=== PATIENT | female | born 1960 | race African-American/Black ===

== ENCOUNTER 2017-01-30 11:19 | Emergency (ER) | payer OTHER ==
[2017-01-30 11:25] VITALS: TEMP 98; BMI 24.3
[2017-01-30 12:25] LABS: BASOPHIL 1.6 % (0-2.0); MCH 30.2 pg (25.7-33.7); MCHC 33.6 g/dl (32.0-36.0); MEAN PLT VOLUME 9.1 fl (7.5-11.1); NEUTROPHILS 52.7 % (42.8-82.8); PLATELET COUNT 237 K/MM3 (134-434); RDW 12.2 % (11.6-15.6); WHITE BLOOD COUNT 4.5 K/mm3 (4.0-10.8)
[2017-01-30 12:40] LABS: CPK(DFH) 166 IU/L (26-140)
[2017-01-30 12:41] LABS: ALBUMIN 3.8 g/dl (3.5-5.0); ALK PHOS 72 U/L (32-92); ANION GAP 7 (8-16); BILIRUBIN,TOTAL 0.5 mg/dl (0.2-1.0); CALCIUM 9.4 mg/dl (8.4-10.2); CO2 27 mmol/L (22-28); CREATININE 0.9 mg/dl (0.6-1.3); GLUCOSE,RANDOM 77 mg/dl (74-106); SGOT/AST 24 U/L (10-42); SGPT/ALT 11 U/L (10-40); TOT PROT 6.8 g/dl (6.4-8.3)
[2017-01-30 12:48] LABS: COCKROFT - GAULT NT
[2017-01-30 13:03] LABS: TROPONIN I (DFP) < 0.03 ng/ml (0.03-0.50)
[2017-01-30 13:04] LABS: CK MB 1.2 ng/ml (0.3-4.0)
[2017-01-30 13:10] VITALS: BP 129/71; PULSE 50
--- NOTE | 2017-01-30 13:39 | PDOC ---
History of Present Illness - General Chief Complaint: Lightheaded Stated Complaint: DIZZINESS Time Seen by Provider: 01/30/17 11:23 History Source: Patient Exam Limitations: No Limitations - History of Present Illness Initial Comments: 01/30/17 13:31 CHIEF COMPLAINT: Palpitations for one month HISTORY OF PRESENT ILLNESS: 57 Year-old female presents complaining of intermittent episodes of palpitations. Patient states she has been under stress for many reasons. She is having financial difficulties and has been working 16 hours a day. 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 She denies any chest pain. She denies any shortness of breath. She denies any change in her exercise tolerance. There is no difficulty walking or climbing stairs. There is no difficulty with exercise when she is working. She does feel an awareness of her heartbeat, and when she is lying still in bed she states that she can see the movement of her heart in her chest. REVIEW OF SYSTEMS: GENERAL/CONSTITUTIONAL: No fever or chills. No weakness. No weight change. HEAD, EYES, EARS, NOSE AND THROAT: No change in vision. No ear pain or discharge. No sore throat. CARDIOVASCULAR: No chest pain or shortness of breath. + Positive awareness of heartbeat. RESPIRATORY: No cough, wheezing, or hemoptysis. GASTROINTESTINAL: No nausea, vomiting, diarrhea or constipation. No rectal bleeding. GENITOURINARY: No dysuria, frequency, or change in urination. MUSCULOSKELETAL: No joint or muscle swelling or pain. No neck or back pain. SKIN AND BREASTS: No rash or easy bruising. NEUROLOGIC: No headache, vertigo, loss of consciousness, or loss of sensation. PSYCHIATRIC: No depression or anxiety. ENDOCRINE: No increased thirst. No abnormal weight change. HEMATOLOGIC/LYMPHATIC: No anemia, easy bleeding, or history of blood clots. ALLERGIC/IMMUNOLOGIC: No hives or skin allergy. No latex allergy. Past History - Past Medical History Allergies/Adverse Reactions: Allergies Allergy/AdvReac Type Severity Reaction Status Date / Time No Known Allergies Allergy Verified 01/30/17 11:21 Home Medications: Ambulatory Orders NK [No Known Home Medication] 01/30/17 GI Disorders: Yes (ULCERS) - Psycho/Social/Smoking Cessation Hx Anxiety: No Suicidal Ideation: No Smoking History: Never smoked Have you smoked in the past 12 months: No Hx Alcohol Use: No Drug/Substance Use Hx: No Substance Use Type: None *Physical Exam - Vital Signs Last Vital Signs Temp Pulse Resp BP Pulse Ox 98 F 50 L 18 129/71 100 01/30/17 11:20 01/30/17 13:09 01/30/17 11:20 01/30/17 13:09 01/30/17 11:20 - Physical Exam Comments: 01/30/17 13:35 GENERAL: The patient is awake, alert, and fully oriented, in no acute distress. Patient complains of multiple life stressors. HEAD: Normal with no signs of trauma. EYES: Pupils equal, round and reactive to light, extraocular movements intact, sclera anicteric, conjunctiva clear. ENT: Ears normal, nares patent, oropharynx clear without exudates. Moist mucous membranes. NECK: Normal range of motion, supple without lymphadenopathy, JVD, or masses. LUNGS: Breath sounds equal, clear to auscultation bilaterally. No wheezes, and no crackles. HEART: Regular rate and rhythm, normal S1 and S2 without murmur, rub or gallop. No irregular or premature beats. ABDOMEN: Soft, nontender, normoactive bowel sounds. No guarding, no rebound. No masses. EXTREMITIES: Normal range of motion, no edema. No clubbing or cyanosis. No cords, erythema, or tenderness. NEUROLOGICAL: Cranial nerves II through XII grossly intact. Normal speech, normal gait. PSYCH: Normal mood, normal affect. SKIN: Warm, Dry, normal turgor, no rashes or lesions noted. Heart Score/ECG Review - ECG Intrepretation Comment:: 01/30/17 13:35 Twelve-lead EKG shows normal sinus rhythm at a rate of 60. There is possible left atrial enlargement. There is RSR prime pattern in leads V1 and V2, possible incomplete right bundle branch block. There are no acute ST or T-wave changes. Impression: Normal sinus rhythm with possible atrial enlargement and possible incomplete right bundle branch block. Otherwise normal EKG. ED Treatment Course - LABORATORY CBC & Chemistry Diagram: 01/30/17 12:05 01/30/17 12:05 - ADDITIONAL ORDERS Additional order review: Laboratory Results 01/30/17 01/30/17 12:05 12:05 Sodium 138 Potassium 4.0 Chloride 104 Carbon Dioxide 27 Anion Gap 7 L BUN 13 Creatinine 0.9 Creat Clearance w eGFR > 60 Random Glucose 77 Calcium 9.4 Total Bilirubin 0.5 AST 24 ALT 11 Alkaline Phosphatase 72 Creatine Kinase 166 H CK-MB (CK-2) 1.2 Troponin I < 0.03 L Total Protein 6.8 Albumin 3.8 01/30/17 12:05 RBC 4.44 MCV 90.0 MCHC 33.6 RDW 12.2 MPV 9.1 Neutrophils % 52.7 Lymphocytes % 37.8 Monocytes % 6.9 Eosinophils % 1.0 Basophils % 1.6 Medical Decision Making - Medical Decision Making 01/30/17 13:36 Patient with 1 month of nonspecific symptoms primarily in the form of an awareness of her part beat and a sensation of palpitations. She is a guide dog trainer and has excellent exercise capacity with no change in her ability to exercise vigorously. Her physical examination is normal. Her 12-lead EKG is essentially unremarkable. Her laboratory workup is also normal, including cardiac enzymes, however, the TSH results will not be available until tomorrow. Laboratory Tests 01/30/17 01/30/17 01/30/17 12:05 12:05 12:05 WBC 4.5 RBC 4.44 Hgb 13.4 Hct 40.0 MCV 90.0 MCHC 33.6 RDW 12.2 Plt Count 237 MPV 9.1 Neutrophils % 52.7 Lymphocytes % 37.8 Monocytes % 6.9 Eosinophils % 1.0 Basophils % 1.6 Sodium 138 Potassium 4.0 Chloride 104 Carbon Dioxide 27 Anion Gap 7 L BUN 13 Creatinine 0.9 Creat Clearance w eGFR > 60 Random Glucose 77 Calcium 9.4 Total Bilirubin 0.5 AST 24 ALT 11 Alkaline Phosphatase 72 Creatine Kinase 166 H CK-MB (CK-2) 1.2 Troponin I < 0.03 L Total Protein 6.8 Albumin 3.8 Impression: Nonspecific palpitations without evidence of acute cardiac disease. TSH was ordered to rule out thyroid disease. The patient has not experienced weight change or other symptoms typical for thyroid disease. She is currently stable for discharge. I advised her to follow-up with her primary care physician to review the results of the thyroid studies and she states she will follow-through.. *DC/Admit/Observation/Transfer Diagnosis at time of Disposition: Palpitations - Discharge Dispostion Disposition: HOME Condition at time of disposition: Stable Admit: No - Referrals Referrals: Carl Gonzales MD [Staff Physician] - Call tomorrow (check up of thyroid TSH for palpitations) - Patient Instructions Printed Discharge Instructions: DI for Palpitations Additional Instructions: Today you were evaluated for an awareness of your heart beat and palpitations. Your examination, your EKG, and your blood tests all came out fine. The thyroid test is still pending at the time of discharge and should be followed up in 48 hours. You are advised to follow-up with Dr. Carl Gonzales, primary care physician. His number has been provided for you. You can call his office tomorrow morning to schedule your follow-up appointment. Return to the emergency department for any severe symptoms.
[2017-01-30 14:02] LABS: THYROID STIMULATING HORMONE 1.57 uIU/ml (0.358-3.74)
--- NOTE | 2017-01-30 16:07 | EKG ---
Test Reason : Blood Pressure : / mmHG Vent. Rate : 060 BPM Atrial Rate : 060 BPM P-R Int : 146 ms QRS Dur : 096 ms QT Int : 426 ms P-R-T Axes : 060 013 035 degrees QTc Int : 426 ms SINUS RHYTHM POSSIBLE LEFT ATRIAL ENLARGEMENT RSR' OR QR PATTERN IN V1 SUGGESTS RIGHT VENTRICULAR CONDUCTION DELAY BORDERLINE ECG NO PREVIOUS ECGS AVAILABLE Confirmed by KEYA MIMS MD ([id number] on 01/30/2017 4:06:52 PM Referred By: ANABELLA GRIJALVA Confirmed By:KEYA MIMS MD
== END 2017-01-30 13:57 | disposition home or self-care (01) ==
LOC: FER 11:19
DX: R00.2 Palpitations (principal)
CPT/HCPCS: 36415; 80053; 82550; 82553; 84443; 84484; 85025; 93005; 99283-25

== ENCOUNTER 2017-11-01 17:41 | Emergency (ER) | payer OTHER ==
[2017-11-01 18:06] VITALS: BP 115/86; PULSE 91; TEMP 99; BMI 24.5
[2017-11-01] MEDS ORDERED: SODIUM CHLORIDE 1,000 ML IV ONE (18:30)
--- NOTE | 2017-11-01 18:31 | PDOC ---
History of Present Illness <Zayda Marie - Last Filed: 11/01/17 19:15> - General History Source: Patient (Walks in to the ED with complaints of cold like symptoms. ) Exam Limitations: No Limitations - History of Present Illness Timing/Duration: 4-6 hours Severity: moderate Associated Symptoms: reports: cough, headaches <Juan José Mai - Last Filed: 11/01/17 19:16> <Luis Denis - Last Filed: 11/01/17 20:17> - General Chief Complaint: Cold Symptoms Stated Complaint: COUGH,HEADCAHE Time Seen by Provider: 11/01/17 17:58 Past History - Past Medical History Cardiac Disorders: Yes (PALPATATIONS) COPD: No GI Disorders: Yes (ULCERS) - Immunization History Immunization Up to Date: Yes - Suicide/Smoking/Psychosocial Hx Smoking History: Never smoked Have you smoked in the past 12 months: No Information on smoking cessation initiated: No Hx Alcohol Use: No Drug/Substance Use Hx: No Substance Use Type: None <Zayda Marie - Last Filed: 11/01/17 19:15> <Juan José Mai - Last Filed: 11/01/17 19:16> <Luis Denis - Last Filed: 11/01/17 20:17> - Past Medical History Allergies/Adverse Reactions: Allergies Allergy/AdvReac Type Severity Reaction Status Date / Time No Known Allergies Allergy Verified 11/01/17 17:44 Home Medications: Ambulatory Orders Metoprolol Succinate 25 mg PO DAILY 11/01/17 Review of Systems - Review of Systems Able to Perform ROS?: Yes Constitutional: Yes: Chills, Other (General body ache. ) Respiratory: Yes: Cough Neurological: Yes: Headache, Other (Lightheadedness. ) All Other Systems: Reviewed and Negative <Juan José Mai - Last Filed: 11/01/17 19:16> *Physical Exam - Vital Signs Last Vital Signs Temp Pulse Resp BP Pulse Ox 99 F 91 H 20 115/86 100 11/01/17 17:42 11/01/17 17:42 11/01/17 17:42 11/01/17 17:42 11/01/17 17:42 <Zayda Marie - Last Filed: 11/01/17 19:15> - Vital Signs Last Vital Signs Temp Pulse Resp BP Pulse Ox 99 F 91 H 20 115/86 100 11/01/17 17:42 11/01/17 17:42 11/01/17 17:42 11/01/17 17:42 11/01/17 17:42 - Physical Exam Cardiovascular: positive: Tachycardia <Juan José Mai - Last Filed: 11/01/17 19:16> - Vital Signs Last Vital Signs Temp Pulse Resp BP Pulse Ox 99 F 91 H 20 115/86 100 11/01/17 17:42 11/01/17 17:42 11/01/17 17:42 11/01/17 17:42 11/01/17 17:42 <Luis Densi - Last Filed: 11/01/17 20:17> ED Treatment Course - LABORATORY CBC & Chemistry Diagram: 11/01/17 18:50 11/01/17 18:50 <Zayda Marie - Last Filed: 11/01/17 19:15> - LABORATORY CBC & Chemistry Diagram: 11/01/17 18:50 11/01/17 18:50 - Medications Given in the ED: ED Medications Discontinued Medications Generic Name Dose Route Start Last Admin Trade Name Freq PRN Reason Stop Dose Admin Acetaminophen 1,000 mg 11/01/17 18:41 11/01/17 18:55 Tylenol - PO 11/01/17 18:42 1,000 mg ONCE ONE Administration <Juan José Mai - Last Filed: 11/01/17 19:16> - LABORATORY CBC & Chemistry Diagram: 11/01/17 18:50 11/01/17 18:50 - ADDITIONAL ORDERS Additional order review: Laboratory Results 11/01/17 18:50 Sodium 136 Potassium 3.6 Chloride 105 Carbon Dioxide 25 Anion Gap 6 L BUN 12 Creatinine 0.8 Creat Clearance w eGFR > 60 Random Glucose 100 D Calcium 9.0 Total Bilirubin 0.4 AST 27 ALT 10 Alkaline Phosphatase 72 Total Protein 7.0 Albumin 3.7 11/01/17 18:50 RBC 4.45 MCV 90.9 MCHC 33.8 RDW 11.9 MPV 9.3 Neutrophils % 88.1 H Lymphocytes % 5.4 L Monocytes % 5.9 Eosinophils % 0.2 Basophils % 0.4 - Medications Given in the ED: ED Medications Discontinued Medications Generic Name Dose Route Start Last Admin Trade Name Freq PRN Reason Stop Dose Admin Acetaminophen 1,000 mg 11/01/17 18:41 11/01/17 18:55 Tylenol - PO 11/01/17 18:42 1,000 mg ONCE ONE Administration Sodium Chloride 1,000 mls @ 1,000 mls/hr 11/01/17 18:30 11/01/17 18:52 Normal Saline - IV 11/01/17 19:29 1,000 mls/hr .Q1H ONE Administration <Luis Denis - Last Filed: 11/01/17 20:17> Medical Decision Making - Medical Decision Making 11/01/17 19:15 Patient stable, receiving iv fluids, endorsed to Dr Denis at shift change <Zayda Marie - Last Filed: 11/01/17 19:15> *DC/Admit/Observation/Transfer <Zayda Marie - Last Filed: 11/01/17 19:15> - Attestations Scribe Attestion: 11/01/17 19:18 Documentation prepared by Juan José Mai, acting as biomedical engineering professor for Zayda Marie MD/DO. <Juan José Mai - Last Filed: 11/01/17 19:16> <Luis Denis - Last Filed: 11/01/17 20:17> Diagnosis at time of Disposition: Influenza-like illness - Discharge Dispostion Disposition: HOME - Patient Instructions Additional Instructions: Please call back for your flu test results: [phone]
[2017-11-01] MEDS ORDERED: ACETAMINOPHEN 500 MG TABLET (FP) PO ONE (18:41)
[2017-11-01] MEDS ORDERED: ACETAMINOPHEN 500 MG TABLET (FP) ONE (18:53)
[2017-11-01 19:14] LABS: BASO % 0.4 % (0-2.0); EOS % 0.2 % (0-4.5); HEMATOCRIT 40.4 % (32.4-45.2); HEMOGLOBIN 13.7 GM/dl (10.7-15.3); LYMPH % 5.4 % (8-40); MCH 30.7 pg (25.7-33.7); MCHC 33.8 g/dl (32.0-36.0); MEAN CELL VOLUME 90.9 fl (80-96); MEAN PLT VOLUME 9.3 fl (7.5-11.1); MONO % 5.9 % (3.8-10.2); NEUT % 88.1 % (42.8-82.8); PLATELET COUNT 200 K/MM3 (134-434); RBC 4.45 M/mm3 (3.60-5.2); RDW 11.9 % (11.6-15.6); WHITE BLOOD COUNT 4.7 K/mm3 (4.0-10.8)
[2017-11-01 19:21] LABS: ALBUMIN 3.7 g/dl (3.5-5.0); ALK PHOS 72 U/L (32-92); ANION GAP 6 (8-16); BILIRUBIN,TOTAL 0.4 mg/dl (0.2-1.0); BLOOD UREA NITROGEN 12 mg/dl (7-18); CHLORIDE 105 mmol/L (98-107); CO2 25 mmol/L (22-28); CREATININE 0.8 mg/dl (0.6-1.3); GLUCOSE,RANDOM 100 mg/dl (74-106); POTASSIUM 3.6 mmol/L (3.5-5.1); SGOT/AST 27 U/L (10-42); SGPT/ALT 10 U/L (10-40); SODIUM 136 mmol/L (136-145)
[2017-11-01] MEDS ORDERED: IBUPROFEN 400 MG TABLET (FP) PO ONE ×2 (20:10→20:13)
== END 2017-11-01 20:17 | disposition home or self-care (01) ==
LOC: FER 17:41
PROC: 3E0337Z Introduction of Electrolytic and Water Balance Substance into Peripheral Vein, Percutaneous Approach (ICD-10-PCS; principal; 2017-11-01)
DX: J11.1 Influenza due to unidentified influenza virus with other respiratory manifestations (principal)
CPT/HCPCS: 36415; 71046-TC; 80053; 85025; 87804; 99282-25